=== PATIENT | female | born 1970 | race Caucasian/White ===

== ENCOUNTER 2019-01-21 09:31 | Emergency (ER) | payer OTHER ==
--- NOTE | 2019-01-21 10:10 | ER ---
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 Transition of care: patient was not received from another setting of care. Onset of symptoms was January 21, 2019. Risk Assessment: Do you want to hurt yourself or someone else? Patient reports no desire to harm self or others. Initial Sepsis Screen: Does the patient meet any 2 criteria? No. Patient's initial sepsis screen is negative. Does the patient have a suspected source of infection? Yes: Skin breakdown/wound. Care prior to arrival: None. 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 - Social history:: Smoking status: Patient/guardian denies using tobacco. - Ebola Screening: : Patient negative for fever greater than or equal to 101.5 degrees Fahrenheit, and additional compatible Ebola Virus Disease symptoms Patient denies exposure to infectious person Patient denies travel to an Ebola-affected area in the 21 days before illness onset No symptoms or risks identified at this time. Screenin:45 Abuse screen: Denies threats or abuse. Nutritional screening: No deficits noted. rb1 Tuberculosis screening: No symptoms or risk factors identified. Fall Risk None identified. Assessment: 09:45 General: Appears in no apparent distress. comfortable, Behavior is calm, cooperative, rb1 Denies fever. Pain: Complains of pain in left foot Pain currently is 7 out of 10 on a pain scale. Pain began . Neuro: Level of Consciousness is awake, alert, obeys commands, Oriented to person, place, time, situation. Cardiovascular: Capillary refill < 3 seconds is brisk in left toes. Respiratory: Airway is patent Respiratory effort is even, unlabored, Respiratory pattern is regular, symmetrical. GI: No signs and/or symptoms were reported involving the gastrointestinal system. : No signs and/or symptoms were reported regarding the genitourinary system. Derm: Wound noted left foot Wound is Redness and small amount of bleeding. 10:19 Reassessment: Patient appears in no apparent distress at this time. No changes from rb1 previously documented assessment. Vital Signs: 09:40 BP 140 / 97; Pulse 76; Resp 18; Pulse Ox 100% ; Weight 62.6 kg; Height 5 ft. 5 in. sg (165.10 cm); Pain 03/15; 09:40 Body Mass Index 22.96 (62.60 kg, 165.10 cm) ED Course: 09:35 Patient arrived in ED. tw3 09:40 Triage completed. sg 09:41 Arm band placed on. sg 09:45 Kaley Canales, RN is Primary Nurse. rb1 09:45 Patient has correct armband on for positive identification. Bed in low position. Call rb1 light in reach. Side rails up X 1. Pulse ox on. NIBP on. 10:00 Peter Orr PA is PHCP. jr8 10:00 Alexy Hawkins MD is Attending Physician. jr8 10:20 No provider procedures requiring assistance completed. Patient did not have IV access rb1 during this emergency room visit. Administered Medications: No medications were administered Outcome: 10:09 Discharge ordered by . jr8 10:20 Discharged to home ambulatory, with family. rb1 10:20 Condition: stable 10:20 Discharge instructions given to patient, Instructed on discharge instructions, follow up and referral plans. medication usage, Demonstrated understanding of instructions, follow-up care, medications, Prescriptions given X 1. 10:20 Patient left the ED. rb1 Signatures: Yair Villeda RN RN Peter Orr PA PA [facility] Kaley Canales, RN RN [facility] Bull, Tia tw3
--- NOTE | 2019-01-21 10:10 | EDPHYS ---
Physician Documentation [facility] Name: Kelli Ross Age: 48 yrs Sex: Female : 1970 Arrival Date: 01/21/2019 Time: 09:35 Bed 13 Private MD: ED Physician Alexy Hawkins HPI: 01/21 11:19 This 48 yrs old Female presents to ER via Ambulatory with complaints of jr8 Surgical Wound Problem. 11:19 Patient presents to ED for recheck of: cellulitis. The affected area is on the left jr8 foot. The patient has not experienced similar symptoms in the past. The patient has been recently seen by a physician:. Patient stated that she recently had a Munguia's neuroma surgery. This past started to notice redness around wound that has since enlarged in size and now becoming more painful . 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 - Social history:: Smoking status: Patient/guardian denies using tobacco. - Ebola Screening: : Patient negative for fever greater than or equal to 101.5 degrees Fahrenheit, and additional compatible Ebola Virus Disease symptoms Patient denies exposure to infectious person Patient denies travel to an Ebola-affected area in the 21 days before illness onset No symptoms or risks identified at this time. ROS: 11:19 Eyes: Negative for injury, pain, redness, and discharge, ENT: Negative for injury, jr8 pain, and discharge, Neck: Negative for injury, pain, and swelling, Cardiovascular: Negative for chest pain, palpitations, and edema, Respiratory: Negative for shortness of breath, cough, wheezing, and pleuritic chest pain, Abdomen/GI: Negative for abdominal pain, nausea, vomiting, diarrhea, and constipation, Back: Negative for injury and pain, MS/Extremity: Negative for injury and deformity, Neuro: Negative for headache, weakness, numbness, tingling, and seizure. 11:19 Skin: Positive for erythema, of the left foot. Exam: 11:19 Eyes: Pupils equal round and reactive to light, extra-ocular motions intact. Lids and jr8 lashes normal. Conjunctiva and sclera are non-icteric and not injected. Cornea within normal limits. Periorbital areas with no swelling, redness, or edema. ENT: Nares patent. No nasal discharge, no septal abnormalities noted. Tympanic membranes are normal and external auditory canals are clear. Oropharynx with no redness, swelling, or masses, exudates, or evidence of obstruction, uvula midline. Mucous membranes moist. Neck: Trachea midline, no thyromegaly or masses palpated, and no cervical lymphadenopathy. Supple, full range of motion without nuchal rigidity, or vertebral point tenderness. No Meningismus. Cardiovascular: Regular rate and rhythm with a normal S1 and S2. No gallops, murmurs, or rubs. Normal PMI, no JVD. No pulse deficits. Respiratory: Lungs have equal breath sounds bilaterally, clear to auscultation and percussion. No rales, rhonchi or wheezes noted. No increased work of breathing, no retractions or nasal flaring. Abdomen/GI: Soft, non-tender, with normal bowel sounds. No distension or tympany. No guarding or rebound. No evidence of tenderness throughout. Back: No spinal tenderness. No costovertebral tenderness. Full range of motion. MS/ Extremity: Pulses equal, no cyanosis. Neurovascular intact. Full, normal range of motion. Neuro: Awake and alert, GCS 15, oriented to person, place, time, and situation. Cranial nerves II-XII grossly intact. Motor strength 5/5 in all extremities. Sensory grossly intact. Cerebellar exam normal. Normal gait. 11:19 Skin: Patient has healing surgical incision to dorsum of left foot with steristrips in place. NO discharge noted. Extending about 2 inches outside and surrounding wound is area of erythema. Tender to touch. No streaking noted localized at this point . Vital Signs: 09:40 BP 140 / 97; Pulse 76; Resp 18; Pulse Ox 100% ; Weight 62.6 kg; Height 5 ft. 5 in. sg (165.10 cm); Pain 7/10; 09:40 Body Mass Index 22.96 (62.60 kg, 165.10 cm) MDM: 10:00 Patient medically screened. jr8 10:08 Data reviewed: vital signs, nurses notes, and as a result, I will discharge patient. jr8 Data interpreted: Pulse oximetry: on room air is 100 %. Interpretation: normal. Counseling: I had a detailed discussion with the patient and/or guardian regarding: the historical points, exam findings, and any diagnostic results supporting the discharge/admit diagnosis, the need for outpatient follow up, orthopedic surgeon. 11:34 ED course: Discussed with patient that if she were to worsen she could either come back jr8 here or go to [facility] where she had the surgery completed and where the surgeon is. S/S given to patient to watch for that would indicate need for more immediate evaluation. Patient good with plan . Administered Medications: No medications were administered Disposition: 16:20 Co-signature as Attending Physician, Peter YANG. [email or web address] Disposition: 01/21/19 10:09 Discharged to Home. Impression: Cellulitis of left lower limb. - Condition is Stable. - Discharge Instructions: Cellulitis, Adult. - Prescriptions for Bactrim DS 800- 160 mg Oral Tablet - take 1 tablet by ORAL route every 12 hours for 10 days; 20 tablet. - Medication Reconciliation Form, Thank You Letter, Antibiotic Education, Prescription Opioid Use form. - Follow up: Private Physician; When: 48 Hours; Reason: Wound Recheck, Recheck today's complaints, Continuance of care, Re-evaluation by your physician. - Problem is new. - Symptoms have improved. Signatures: Yair Villeda RN RN Peter Orr PA PA jr8 Kaley Canales RN RN rb1 Alexy Hawkins MD MD Corrections: (The following items were deleted from the chart) 10:20 10:09 01/21/2019 10:09 Discharged to Home. Impression: Cellulitis of left lower limb. rb1 Condition is Stable. Forms are Medication Reconciliation Form, Thank You Letter, Antibiotic Education, Prescription Opioid Use. Follow up: Private Physician; When: 48 Hours; Reason: Wound Recheck, Recheck today's complaints, Continuance of care, Re-evaluation by your physician. Problem is new. Symptoms have improved. jr8
== END 2019-01-21 10:20 | disposition home or self-care (01) ==
LOC: ER 09:31
DX: L03.116 Cellulitis of left lower limb (principal); Z88.8 Allergy status to other drugs, medicaments and biological substances
CPT/HCPCS: 99283